=== PATIENT | male | born 1960 | race Caucasian/White ===

== ENCOUNTER 2017-11-23 07:24 | Day surgery (SDC) | payer BC ==
[2017-11-22 08:16] VITALS: BMI 31.4
--- NOTE | 2017-11-22 23:36 | P.GSHP ---
History of Present Illness H&P Date: 11/23/17 CHIEF COMPLAINT: Colon screen HISTORY OF PRESENT ILLNESS: The patient is a 57-year-old male who presents for colon screen. Lower endoscopy was offered for further evaluation and management. PAST MEDICAL HISTORY: Please see list. PAST SURGICAL HISTORY: Please see list. MEDICATIONS: Please see list. ALLERGIES: Please see list. SOCIAL HISTORY: No illicit drug use FAMILY HISTORY: No reports of Crohn disease or ulcerative colitis. REVIEW OF ORGAN SYSTEMS: CONSTITUTIONAL: No reports of fevers or chills. PHYSICAL EXAM: VITAL SIGNS: Stable GENERAL: Well-developed pleasant in no acute distress. HEENT: No scleral icterus. Extraocular movements grossly intact. Moist buccal mucosa. NECK: Supple without lymphadenopathy. CHEST: Unlabored respirations. Equal bilateral excursions. CARDIOVASCULAR: Regular rate and rhythm. Distal 2+ pulses. ABDOMEN: Soft, nontender, nondistended. MUSCULOSKELETAL: No clubbing, cyanosis, or edema. ASSESSMENT: 1. Colon screen. PLAN: 1. Recommend proceeding with a lower endoscopy Past Medical History Past Medical History: Hypertension History of Any Multi-Drug Resistant Organisms: None Reported Past Surgical History: Orthopedic Surgery, Tonsillectomy Additional Past Surgical History / Comment(s): surgery for hammertoe left foot Past Anesthesia/Blood Transfusion Reactions: No Reported Reaction Smoking Status: Never smoker - Past Family History Mother Family Medical History: No Reported History Medications and Allergies Home Medications Medication Instructions Recorded Confirmed Type Aspirin [Adult Low Dose Aspirin EC] 81 mg PO DAILY 11/22/17 11/22/17 History Hydrochlorothiazide [Hydrodiuril] 25 mg PO DAILY 11/22/17 11/22/17 History Vitamin D (Dose Unknown) 1 tab PO DAILY 11/22/17 11/22/17 History Allergies Allergy/AdvReac Type Severity Reaction Status Date / Time cephalexin [From Keflex] Allergy Rash/Hives Verified 11/22/17 08:09
[~2017-11-23 07:24] MED LIST: LACTATED RINGERS 1,000 ML IV SCH
[2017-11-23 07:55] VITALS: RESP 16; TEMP 97.1
[2017-11-23] MEDS ORDERED: LIDOCAINE 1% 20 ML VIAL (10MG/ML) FOR IV START INTRADERMA ONE (08:05)
[2017-11-23] MEDS ORDERED: PROPOFOL 10 MG/ML 20 ML VIAL IV ONE (08:15)
[2017-11-23] MEDS ORDERED: LIDOCAINE 1% INJ 10MG/ML (20 ML MDV) ONE (08:15)
--- NOTE | 2017-11-23 08:43 | P.PCN ---
Date of Procedure: 11/23/17 Description of Procedure: PREOPERATIVE DIAGNOSIS: Colonoscopy screening, first POSTOPERATIVE DIAGNOSIS: Colonoscopy screening, first Multiple tubular adenomas throughout the colon. Sigmoid diverticulosis OPERATION: Colonoscopy to the ileocecal valve and appendiceal orifice. Colonoscopy with multiple hot snare polypectomies SURGEON: Deisy Zhang MD. ANESTHESIA: MAC. INDICATIONS: The patient is a 57-year-old male who presents for his first colonoscopy screening. Benefits and risks were described and informed consent was obtained. DESCRIPTION OF PROCEDURE: The patient had undergone Gatorade, MiraLAX and Dulcolax prep. He had been brought into the operating room and laid in the left lateral decubitus position. After adequate intravenous sedation, the rectum was examined with 2% lidocaine jelly. No external hemorrhoids were encountered. The rectal tone was within normal limits. No lesions were palpated in the rectal vault. An Olympus colonoscope was advanced until the ileocecal valve and appendiceal orifice were clearly viewed. The prep was excellent with visualization of the mucosal folds. The scope was removed with visualization of each mucosal fold. Scattered sigmoid diverticulosis was encountered. Multiple colonic polyps were found and snare polypectomy. No evidence of focal colitis was found. Retroflexion of the scope demonstrated no internal hemorrhoids without active bleeding or inflammation. The colon was desufflated. The patient had tolerated the procedure well. Withdrawal time was over 6 minutes. FINDINGS: No internal hemorrhoids No external hemorrhoids No arteriovenous malformations Sigmoid diverticulosis without diverticulitis Removal of 2 polyps: - Snare polypectomy at ascending colon, 6 mm tubulovillous adenoma polyp. - Snare polypectomy at hepatic flexure, 8 mm villous adenoma polyp. No focal colitis. RECOMMENDATIONS: Given severity of tubular adenomas, recommend repeat colonoscopy 2 years, 2019 Plan - Discharge Summary New Discharge Prescriptions: No Action Hydrochlorothiazide [Hydrodiuril] 25 mg PO DAILY Aspirin [Adult Low Dose Aspirin EC] 81 mg PO DAILY Vitamin D (Dose Unknown) 1 tab PO DAILY Discharge Medication List Aspirin [Adult Low Dose Aspirin EC] 81 mg PO DAILY 11/22/17 [History] Hydrochlorothiazide [Hydrodiuril] 25 mg PO DAILY 11/22/17 [History] Vitamin D (Dose Unknown) 1 tab PO DAILY 11/22/17 [History]
[2017-11-23 08:55] VITALS: BP 134/89; PULSE 65
== END 2017-11-23 09:14 | disposition home or self-care (01) ==
LOC: ORWHC2ENDO 07:24
PROVIDERS: ATTEND Surgery Plastic and Reconstructive Surgery
DX: Z12.11 Encounter for screening for malignant neoplasm of colon (principal); D12.2 Benign neoplasm of ascending colon; D12.3 Benign neoplasm of transverse colon; K57.30 Diverticulosis of large intestine without perforation or abscess without bleeding; I10 Essential (primary) hypertension; Z79.82 Long term (current) use of aspirin; Z79.899 Other long term (current) drug therapy; Z88.1 Allergy status to other antibiotic agents
CPT/HCPCS: 88305; 45385; J2001; J2704

== ENCOUNTER → 2020-08-29 | Outpatient (CLI) | payer BC ==
--- NOTE | 2020-08-29 12:53 | XR ---
EXAMINATION TYPE: XR foot complete RT DATE OF EXAM: 08/29/2020 CLINICAL HISTORY: Foot ulceration TECHNIQUE: Frontal, lateral, and oblique images of the right foot are obtained. COMPARISON: None FINDINGS: There are degenerative changes of the first metatarsal and interphalangeal joints. There is soft tiss ue gas is seen adjacent to the interphalangeal joint of the great toe. No plain radiograph evidence f or osteomyelitis; MRI is more sensitive. IMPRESSION: There are degenerative changes of the first metatarsal and interphalangeal joints. There is soft tiss ue gas is seen adjacent to the interphalangeal joint of the great toe. No plain radiograph evidence f or osteomyelitis; MRI is more sensitive.
== END | disposition home or self-care (01) ==
LOC: RADXRMAIN 11:05
PROVIDERS: ATTEND Pediatrics
DX: M19.071 Primary osteoarthritis, right ankle and foot (principal)

== ENCOUNTER → 2020-09-04 | Outpatient (CLI) | payer BC ==
[2020-09-04 15:15] LABS: Basophils # (A) 0.03 X 10*3/uL (0.00-0.10); Basophils % (A) 0.4 %; Eosinophils # (A) 0.18 X 10*3/uL (0.04-0.35); Eosinophils % (A) 2.7 %; HCT 42.1 % (39.6-50.0); HGB 13.3 g/dL (13.0-17.0); Lymphocytes # (A) 1.66 X 10*3/uL (0.90-5.00); Lymphocytes % (A) 24.8 %; MCH 28.7 pg (27.0-32.0); MCHC 31.6 g/dL (32.0-37.0); MCV 90.9 fL (80.0-97.0); Mean Platelet Volume 9.4 fL (9.5-12.2); Monocytes # (A) 0.66 X 10*3/uL (0.20-1.00); Monocytes % (A) 9.9 %; Neutrophils # (A) 4.14 X 10*3/uL (1.80-7.70); Neutrophils % (A) 61.9 %; Platelet Count 354 X 10*3/uL (140-440); RBC 4.63 X 10*6/uL (4.40-5.60); RDW 14.6 % (11.5-14.5); WBC 6.69 X 10*3/uL (4.50-10.00)
[2020-09-04 17:14] LABS: African American GFR (CKD) 83.5 (60.0-200.0); Albumin 4.1 g/dL (3.80-4.90); Albumin/Globulin Ratio 1.17 (1.60-3.17); Anion Gap 7.3 mmol/L (4.00-12.00); BUN/Creat Ratio 16.36 Ratio (12.00-20.00); Carbon Dioxide 25.7 mmol/L (21.6-31.8); Chol/HDL Ratio 4.22; Globulin 3.5 g/dL (1.6-3.3); LDL Cholesterol,Calculated 96.8 mg/dL (0.0-131.0); Non-African American GFR(CKD) 72.1 (60.0-200.0); Potassium 3.9 mmol/L (3.5-5.5); Total Bilirubin 0.4 mg/dL (0.2-1.2); Total Protein 7.6 g/dL (6.2-8.2); VLDL Calculation 19.2 mg/dL (5.00-40.00)
== END | disposition home or self-care (01) ==
LOC: LABWHC1 08:45
PROVIDERS: ATTEND Physician Assistant
DX: Z00.01 Encounter for general adult medical examination with abnormal findings (principal); E78.1 Pure hyperglyceridemia; I73.9 Peripheral vascular disease, unspecified; R20.2 Paresthesia of skin
CPT/HCPCS: 36415; 80053; 80061; 85025

== ENCOUNTER → 2020-09-05 | Outpatient (CLI) | payer BC ==
--- NOTE | 2020-09-10 13:11 | P.ARTDOP ---
Arterial Doppler LOWER EXTREMITY ARTERIAL DOPPLER: DATE OF SERVICE: 09/05/2020: Reason for study: Ulcer left great toe. Doppler waveforms: Multiphasic bilaterally throughout. Pulse volume recording: []. Pressure gradients: None. Ankle-brachial indices: Greater than 1 bilaterally. Toe brachial indices: [] on the right, [] on the left Impression: Normal study.
== END | disposition home or self-care (01) ==
LOC: RADUSWWP 12:11
PROVIDERS: ATTEND Pediatrics
DX: I73.9 Peripheral vascular disease, unspecified (principal)
CPT/HCPCS: 93922

== ENCOUNTER 2020-09-18 06:35 | Day surgery (SDC) | payer BC ==
[2020-09-16 10:56] VITALS: BMI 32.3
[~2020-09-18 06:35] MED LIST changes: -LACTATED RINGERS 1,000 ML IV SCH; +LIDOCAINE 1% (10MG/ML) FOR IV START INTRADERMA PRN
[2020-09-18 07:11] VITALS: RESP 16; TEMP 97.3
[2020-09-18] MEDS: LACTATED RINGERS 1,000 ML IV SCH ×2 (07:22→07:40)
[2020-09-18] MEDS ORDERED: LIDOCAINE 1% INJ 10MG/ML (20 ML MDV) ONE (07:40)
[2020-09-18] MEDS ORDERED: PROPOFOL 10 MG/ML 20 ML VIAL IV ONE (07:40)
--- NOTE | 2020-09-18 07:40 | P.GSHP ---
History of Present Illness H&P Date: 09/18/20 CHIEF COMPLAINT: Colon screen HISTORY OF PRESENT ILLNESS: The patient is a 60-year-old male who presents for colon screen. Lower endoscopy was offered for further evaluation and management. PAST MEDICAL HISTORY: Please see list. PAST SURGICAL HISTORY: Please see list. MEDICATIONS: Please see list. ALLERGIES: Please see list. SOCIAL HISTORY: No illicit drug use FAMILY HISTORY: No reports of Crohn disease or ulcerative colitis. REVIEW OF ORGAN SYSTEMS: CONSTITUTIONAL: No reports of fevers or chills. PHYSICAL EXAM: VITAL SIGNS: Stable GENERAL: Well-developed pleasant in no acute distress. HEENT: No scleral icterus. Extraocular movements grossly intact. Moist buccal mucosa. NECK: Supple without lymphadenopathy. CHEST: Unlabored respirations. Equal bilateral excursions. CARDIOVASCULAR: Regular rate and rhythm. Distal 2+ pulses. ABDOMEN: Soft, nontender, nondistended. MUSCULOSKELETAL: No clubbing, cyanosis, or edema. ASSESSMENT: 1. Colon screen. PLAN: 1. Recommend proceeding with a lower endoscopy Past Medical History Past Medical History: Hypertension Additional Past Medical History / Comment(s): fully vaccinated covid,wounds 1 rst digits john feet, hx colon polyps History of Any Multi-Drug Resistant Organisms: None Reported Additional Past Surgical History / Comment(s): colonscopy Past Anesthesia/Blood Transfusion Reactions: No Reported Reaction Smoking Status: Never smoker - Past Family History Mother Family Medical History: No Reported History Medications and Allergies Home Medications Medication Instructions Recorded Confirmed Type hydroCHLOROthiazide [Hydrodiuril] 25 mg PO DAILY 11/22/17 09/18/20 History Sulfamethox-Tmp 800-160Mg [Bactrim 1 tab PO Q12HR 09/16/20 09/18/20 History DS 800-160 mg] Allergies Allergy/AdvReac Type Severity Reaction Status Date / Time cephalexin [From Keflex] Allergy Rash/Hives Verified 09/18/20 07:12 Surgical - Exam Vital Signs Temp Pulse Resp BP Pulse Ox 97.3 F L 63 16 124/72 96 09/18/20 07:09 09/18/20 07:09 09/18/20 07:09 09/18/20 07:09 09/18/20 07:09
--- NOTE | 2020-09-18 08:05 | P.PCN ---
Date of Procedure: 09/18/20 Description of Procedure: PREOPERATIVE DIAGNOSIS: Personal history colon polyps Colonoscopy screening. POSTOPERATIVE DIAGNOSIS: Personal history colon polyps Colonoscopy screening. OPERATION: Colonoscopy to the cecum, ileocecal valve and appendiceal orifice. SURGEON: Deisy Zhang MD. ANESTHESIA: MAC. INDICATIONS: The patient is a 60-year-old male who presents for colonoscopy screening. Last colonoscopy was in 5 years ago. Benefits and risks were described and informed consent was obtained. DESCRIPTION OF PROCEDURE: The patient had undergone Suprep. The patient had been brought into the operating room and laid in the left lateral decubitus position. After adequate intravenous sedation, the rectum was examined with 2% lidocaine jelly. No external hemorrhoids were encountered. The prostate was unremarkable. The rectal tone was within normal limits. No lesions were palpated in the rectal vault. An Olympus colonoscope was advanced until the cecum, ileocecal valve and appendiceal orifice were clearly viewed. The prep was excellent. Moderate foam was identified on the mucosa prohibiting complete view of the mucosa. Additionally, patient had coughing spells also prohibiting clear view of the colon mucosa. No large colonic polyps were found. No evidence of focal colitis was found. Retroflexion of the scope demonstrated grade 1 internal hemorrhoids without active bleeding or inflammation. The colon was desufflated. Withdrawal time was less than 6 minutes. FINDINGS: Aronchick preparation quality scale 1 (1-5) Internal hemorrhoids, grade 1 No external prolapsed hemorrhoids. No arteriovenous malformations. No large adenomatous polyps. No focal colitis. RECOMMENDATIONS: Repeat colonoscopy 3 years, 2023
[2020-09-18 08:23] VITALS: BP 123/80; PULSE 67
== END 2020-09-18 09:09 | disposition home or self-care (01) ==
LOC: ORWHC2ENDO 06:35
PROVIDERS: ATTEND Surgery Plastic and Reconstructive Surgery
DX: Z12.11 Encounter for screening for malignant neoplasm of colon (principal); I10 Essential (primary) hypertension; Z88.1 Allergy status to other antibiotic agents; Z86.010 Personal history of colon polyps
CPT/HCPCS: J2001; J2704; G0121

== ENCOUNTER → 2020-09-26 | Outpatient (CLI) | payer BC ==
--- NOTE | 2020-09-26 13:17 | XR ---
EXAMINATION TYPE: XR foot complete LT DATE OF EXAM: 09/26/2020 CLINICAL HISTORY: Osteomyelitis of the great toe TECHNIQUE: Frontal, lateral, and oblique images of the left foot are obtained. COMPARISON: None FINDINGS: There is marked destruction and lucency of the distal phalanx of the great toe and to a lesser degree the distal aspect of the proximal phalanx of the great toe. These findings are highly concerning for osteomyelitis. There are degenerative changes noted throughout the midfoot. IMPRESSION: There is marked destruction and lucency of the distal phalanx of the great toe and to a lesser degree the distal aspect of the proximal phalanx of the great toe. These findings are highly concerning for osteomyelitis. There are degenerative changes noted throughout the midfoot.
== END | disposition home or self-care (01) ==
LOC: RADXRMAIN 10:24
PROVIDERS: ATTEND Podiatrist
DX: M19.072 Primary osteoarthritis, left ankle and foot (principal)

== ENCOUNTER → 2020-10-03 | Outpatient (CLI) | payer BC ==
[2020-10-03 16:45] LABS: HCT 42.7 % (39.6-50.0); MCH 27.8 pg (27.0-32.0); MCHC 30.4 g/dL (32.0-37.0); MCV 91.4 fL (80.0-97.0); Mean Platelet Volume 9.7 fL (9.5-12.2); Platelet Count 300 X 10*3/uL (140-440); RBC 4.67 X 10*6/uL (4.40-5.60); RDW 15.3 % (11.5-14.5); WBC 6.66 X 10*3/uL (4.50-10.00)
[2020-10-03 21:09] LABS: African American GFR (CKD) 93.7 (60.0-200.0); Albumin 4.1 g/dL (3.80-4.90); Albumin/Globulin Ratio 1.17 (1.60-3.17); Anion Gap 8.8 mmol/L (4.00-12.00); C Reactive Protein 0.6 mg/dL (0.0-0.8); Calcium 9.1 mg/dL (8.7-10.3); Carbon Dioxide 27.2 mmol/L (21.6-31.8); Globulin 3.5 g/dL (1.6-3.3); Non-African American GFR(CKD) 80.9 (60.0-200.0); Potassium 4.2 mmol/L (3.5-5.5); Total Bilirubin 0.3 mg/dL (0.3-1.2); Total Protein 7.6 g/dL (6.2-8.2)
[2020-10-03 22:02] LABS: Erythrocyte Sedimentation Rate 43 mm/Hr (0-20)
== END | disposition home or self-care (01) ==
LOC: LABWHC1 10:04
PROVIDERS: ATTEND Nurse Practitioner Family
DX: L89.893 Pressure ulcer of other site, stage 3 (principal)
CPT/HCPCS: 36415; 80053; 84134; 85027; 85652; 86140

== ENCOUNTER → 2020-10-08 | Outpatient (CLI) | payer BC ==
--- NOTE | 2020-10-09 04:44 | MR ---
EXAMINATION TYPE: MR foot LT wo/w con DATE OF EXAM: 10/08/2020 COMPARISON: None HISTORY: Pressure ulcer Pain and swelling CONTRAST: Standard multiplanar, multisequence MRI departmental protocol utilizing 11.5 ml mL intravenous Gadavi st gadolinium contrast. On the STIR images there is abnormal increased signal in the proximal and distal phalanx of the big t oe. There is some narrowing and spurring at the first MP joint. The metatarsals are intact. There is some spurring and narrowing at the second MP joint. There is soft tissue swelling around the end of t he big toe. There is soft tissue enhancement around the big toe. There are destructive changes involv ing large portion of the distal phalanx of the big toe. There is increased fluid signal at the planta r aspect of the proximal phalanx of the big toe with fluid around the flexor pollicis tendon. The ten don is somewhat retracted and wavy. IMPRESSION: Destructive changes in the distal phalanx of the big toe. Edema and the proximal phalanx of the big t oe. This is consistent with osteomyelitis. Soft tissue swelling around the big toe. Fluid collection on the plantar aspect which appears to communicate with the flexor pollicis tendon and consistent wit h large ulcer.. The fluid collection measures 14 mm and there is fluid around the tendon. There is pa rtial retraction.
== END | disposition home or self-care (01) ==
LOC: RADMRIMAIN 08:40
PROVIDERS: ATTEND Nurse Practitioner Family
DX: L89.893 Pressure ulcer of other site, stage 3 (principal); L89.892 Pressure ulcer of other site, stage 2; G60.9 Hereditary and idiopathic neuropathy, unspecified; R60.0 Localized edema
CPT/HCPCS: 73720; A9585

== ENCOUNTER → 2020-10-31 | Outpatient (CLI) | payer BC ==
--- NOTE | 2020-11-01 02:28 | MR ---
EXAMINATION TYPE: MR foot RT wo/w con DATE OF EXAM: 10/31/2020 COMPARISON: None HISTORY: Osteomyelitis of right great toe CONTRAST: Standard multiplanar, multisequence MRI departmental protocol utilizing 11.5 mL intravenous Gadavist gadolinium contrast. There is increased fluid signal in the dorsum of the foot in the subcutaneous tissues. This extends t o the base of the toes. There is subcutaneous edema around the metatarsal heads.There is narrowing of the first MP joint space with spur formation. On the T1 images there is abnormal decreased signal in the distal phalanx of the big toe and also the head of the proximal phalanx of the big toe. I see no definite fracture line. There is corresponding increased signal on the STIR images in the big toe. The contrast images do not show any significant pathologic enhancement of the big toe. IMPRESSION: Subcutaneous edema consistent with cellulitis. Abnormal signal in the distal phalanx and proximal phalanx of the big toe is suggestive of osteomyeli tis. No fractureseen.
== END | disposition home or self-care (01) ==
LOC: RADMRIMAIN 06:43
PROVIDERS: ATTEND Thoracic Surgery (Cardiothoracic Vascular Surgery)
DX: L89.893 Pressure ulcer of other site, stage 3 (principal); G60.9 Hereditary and idiopathic neuropathy, unspecified; L89.892 Pressure ulcer of other site, stage 2; M86.8X7 Other osteomyelitis, ankle and foot
CPT/HCPCS: 73720; A9585

== ENCOUNTER 2020-11-21 12:26 | Day surgery (SDC) | payer BC ==
[2020-11-20 10:11] VITALS: BMI 32.3
[~2020-11-21 12:26] MED LIST changes: +DEXAMETHASONE SOD PHOSPHATE 4 MG/ML 1 ML VIAL IV ONE; +HYDROmorphone 0.5 MG/0.5 ML SYRINGE IVP PRN; +LACTATED RINGERS 1,000 ML IV SCH; -LIDOCAINE 1% (10MG/ML) FOR IV START INTRADERMA PRN; +MIDAZOLAM 2 MG/2 ML VIAL IV PRN; +ONDANSETRON 4 MG/2 ML VIAL IVP ONE; +SCOPOLAMINE 1.5MG/72HR PATCH TRANSDERM ONE; +VANCOMYCIN 1,750 MG in SODIUM CHLORIDE 0.9% 500 ML 500 ML IVPB PRN
[2020-11-21] MEDS ORDERED: LIDOCAINE 1% (10MG/ML) FOR IV START INTRADERMA ONE (12:54)
[2020-11-21 12:59] VITALS: RESP 16
--- NOTE | 2020-11-21 13:28 | P.PN ---
Subjective Progress Note Date: 11/21/20 Principal diagnosis: oseotmyelitis left Hallux Patient seen at bedside today prior to surgery patient voices no complaints has signed consent for surgical intervention Objective - Vital Signs Vital signs: Vital Signs Temp 97.8 F 11/21/20 12:57 Pulse 69 11/21/20 12:57 Resp 16 11/21/20 12:57 BP 146/92 11/21/20 12:57 Pulse Ox 99 11/21/20 12:57 Intake & Output 11/20/20 11/21/20 11/21/20 18:59 06:59 18:59 Weight 111.13 kg 120.2 kg - Cardiovascular Details: Pedal pulses are patent palpable symmetrical bilateral - Integumentary Integumentary Comment(s): Full-thickness ulcers bilateral hallux with ulceration to bone on the left hallux - Neurologic Neurologic Comment(s): 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 Discussed with patient surgery complications prognosis risk expectations patient desires to proceed with surgery will continue with this plan.
[2020-11-21] MEDS ORDERED: MIDAZOLAM 2 MG/2 ML VIAL ONE (13:43)
[2020-11-21] MEDS ORDERED: LIDOCAINE 1% INJ 10MG/ML (20 ML MDV) ONE (13:43)
[2020-11-21] MEDS ORDERED: PROPOFOL 10 MG/ML 20 ML VIAL IV ONE (13:43)
[2020-11-21] MEDS ORDERED: fentaNYL (PF) 50 MCG/ML 2 ML AMP ONE (13:43)
[2020-11-21] MEDS ORDERED: LIDOCAINE 2% INJ 20 MG/ML SQ ONE ×2 (14:00)
[2020-11-21] MEDS ORDERED: BACITRACIN OINT 1 EACH PACKET TOPICAL ONE (14:39)
[2020-11-21 14:51] VITALS: TEMP 98.8
--- NOTE | 2020-11-21 14:53 | P.OP ---
Date of Procedure: 11/21/20 Preoperative Diagnosis: Osteomyelitis left hallux Postoperative Diagnosis: Osteomyelitis left hallux Procedure(s) Performed: Partial amputation left hallux Anesthesia: local Surgeon: Eliezer Moody Estimated Blood Loss (ml): 5 Pathology: none sent Condition: stable Disposition: same day Indications for Procedure: Osteomyelitis left hallux Operative Findings: Consistent with clinical findings Description of Procedure: Patient presented proximally 2 hours prior to foot surgery having been nothing by mouth since prior visit. All labs H&P x-rays consent were reviewed and no contraindication to the above procedure was found. Patient was brought to the OR placed on the OR table in supine position. Sedation was given and the left foot ankle were then prepped usual aseptic manner. A ankle tourniquet was applied copious amounts web.. The left hallux was then anesthetized with 6 mL of 2% Xylocaine plain. The left foot and ankle were then elevated and use of an Vega wrap for exsanguination for 3 minutes after which time the ankle pneumatic tourniquet was inflated to 2 50 mmHg. The left foot ankle were then prepped and draped in attention was directed to the distal aspect left hallux. Here too incisions fish[place] was made over centered over the IPJ left hallux. Incision was carried down to superficial and deep fascia down to bone and the IPJ was articulated. The distal aspect of the digit was then removed and retained for pathological evaluation. Using a sagittal saw the head of the proximal phalanx was partially removed and a portion was retained and sent for culture and sensitivity. The wound was inspected and adequate surgical reduction clinical deformity was noted. The tendon was repaired extensor to flexor hallucis with 3-0 Vicryl simple interrupted sutures. The deep fascia planes were reappro ximated 3-0 Vicryl simper up sutures. Skin edges were loosely reapproximated with surgical diamond. The tourniquet was deflated and adequate vascular return noted to all areas of the left foot. The wound was then dressed with triple antibiotic Adaptic 4 x 4's 2 inch Ally and 4 inch Kerlix. Adequate vascular return was noted to all areas the left foot and Vega wrap was applied over the dressing to maintain the dressing well patient was ambulating etc. Patient is brought to the recovery room from the OR OR having tolerated procedure and anesthesia well discharged with postop instructions surgical shoe patient is to elevate the foot continue with IV antibiotics take Motrin and Advil for pain return to clinic as instructed after the procedure on the back table the distal amputated digit was dissected down to bone and a tissue culture was taken for infectious disease for selection appropriate antibiotics.
[2020-11-21 15:42] VITALS: BP 156/97; PULSE 61
== END 2020-11-21 16:02 | disposition home or self-care (01) ==
LOC: OR 12:26
PROVIDERS: ATTEND Podiatrist
DX: M86.9 Osteomyelitis, unspecified (principal); E78.5 Hyperlipidemia, unspecified; G47.33 Obstructive sleep apnea (adult) (pediatric); Z79.899 Other long term (current) drug therapy; Z88.1 Allergy status to other antibiotic agents
CPT/HCPCS: 28825; 87070; 87205; 87075; 87077; 87186; J2001 ×2; J2250; J3370; J1100; J2405; J3010; J2704

== ENCOUNTER → 2021-05-15 | Outpatient (CLI) | payer BC | END | disposition home or self-care (01) | LOC: LABWHC1 11:19 | PROVIDERS: ATTEND Podiatrist | DX: G60.9 Hereditary and idiopathic neuropathy, unspecified (principal); L89.893 Pressure ulcer of other site, stage 3; L89.892 Pressure ulcer of other site, stage 2; M86.672 Other chronic osteomyelitis, left ankle and foot; M86.671 Other chronic osteomyelitis, right ankle and foot | CPT/HCPCS: 36415; 84134 ==

== ENCOUNTER → 2021-06-26 | Outpatient (CLI) | payer BC ==
--- NOTE | 2021-06-26 11:31 | XR ---
EXAMINATION TYPE: XR foot complete RT DATE OF EXAM: 06/26/2021 CLINICAL HISTORY: Open wound first toe. Pain and swelling. TECHNIQUE: Frontal, lateral, and oblique images of the right foot are obtained. COMPARISON: Prior right foot x-ray April 10, 2021. FINDINGS: Persistent hallux valgus positioning first interphalangeal joint. There is persistent subch ondral cystic change and mild to moderate spurring at this level. There is persistent mild/moderate n arrowing and spurring first metatarsophalangeal joint. Moderate to severe diffuse soft tissue swellin g is redemonstrated. No new bony destruction clearly seen. Marked flexion of the other toes is redemo nstrated. IMPRESSION: As above. No significant change from most recent prior.
== END | disposition home or self-care (01) ==
LOC: RADXRMAIN 11:02
PROVIDERS: ATTEND Podiatrist
DX: M86.671 Other chronic osteomyelitis, right ankle and foot (principal)